=== PATIENT | male | born 1965 | race Caucasian/White ===

== ENCOUNTER 2016-05-26 05:36 | Outpatient (CLI) | payer BC ==
[~2016-05-26] VITALS: Ht 177.8 cm; Wt 129.5 kg
[2016-05-26] MEDS ORDERED: MESA800T PO (12:05)
[2016-05-26] MEDS ORDERED: ATOR10TA66 PO (12:05)
[2016-05-26] MEDS ORDERED: HYDR25TA4 PO (12:05)
[2016-05-26] MEDS ORDERED: DILT120C10 PO (12:05)
[2016-05-26 12:11] VITALS: BP 145/89
== END 2016-05-26 12:51 | disposition home or self-care (01) ==
LOC: PREOP 05:36
PROVIDERS: ATTEND Surgery
DX: Z01.818 Encounter for other preprocedural examination (principal); D17.9 Benign lipomatous neoplasm, unspecified
CPT/HCPCS: 87081

== ENCOUNTER 2016-06-02 06:00 | Day surgery (SDC) | payer BC ==
[~2016-06-02] VITALS: Ht 177.8 cm; Wt 129.5 kg
[~2016-06-02 06:00] MED LIST: ATOR10TA66 PO; DILT120C10 PO; HYDR25TA4 PO; MESA800T PO
[2016-06-02] MEDS ORDERED: ceFAZolin 2 GM/50 ML NS 50 ML IV ONE (06:25)
[2016-06-02] MEDS ORDERED: LACTATED RINGERS 1,000 ML IV PRN (06:56)
[2016-06-02] MEDS ORDERED: ceFAZolin 2 GM/NS 50 ML IV ONE (07:00)
[2016-06-02 07:12] VITALS: BP 158/101
[2016-06-02] MEDS ORDERED: ONDANSETRON 4 MG/2 ML (SDV) Z0FRAN ONE (07:16)
[2016-06-02] MEDS ORDERED: ROCURONIUM 50 MG/5 ML (ZEMURON) VIAL IV ONE (07:16)
[2016-06-02] MEDS ORDERED: proPOfol 200 MG/20 ML (DIPRIVAN) VIAL IV ONE (07:16)
[2016-06-02] MEDS ORDERED: LIDOCAINE PF 2% 10 ML (XYLOCAINE) AMP ONE (07:16)
[2016-06-02] MEDS ORDERED: fentaNYL INJECTION 100 MCG/2 ML AMP ONE (07:16)
[2016-06-02] MEDS ORDERED: SEVOFLURANE (ULTANE) 15 ML INHAL SOLN ONE (07:16)
[2016-06-02] MEDS ORDERED: LACTATED RINGERS 1,000 ML IV ONE (07:16)
[2016-06-02] MEDS ORDERED: MIDAZOLAM 2 MG/2 ML (VERSED) VIAL ONE (07:16)
[2016-06-02] MEDS ORDERED: BUPIVACAINE 0.5% 30 ML (SENSORCAINE) VIAL ONE (07:21)
[2016-06-02] MEDS ORDERED: LIDOCAINE 1% INJ 20 ML (XYLOCAINE) VIAL ONE (07:21)
[2016-06-02] MEDS ORDERED: SUCCINYLCHOLINE INJ 100 MG/5 ML SYR ONE (07:22)
--- NOTE | 2016-06-02 07:33 | Progress Note-Pre Operative ---
Pre-Operative Progress Note H&P Reviewed The H&P was reviewed, patient examined and no changes noted. Date H&P Reviewed: Jun 02, 2016 Time H&P Reviewed: 07:33 Pre-Operative Diagnosis: lipoma right shoulder, skin tags b/l YRN Queen DO Jun 02, 2016 7:33 am
--- NOTE | 2016-06-02 07:57 | Discharge Inst-Simple/Standard ---
Discharge Inst-Standard Discharge Medications New, Converted or Re-Newed RX: RX on Chart Patient Instructions/Follow Up Plan of Care/Instructions/FU: Follow up in clinic in 12 days Apply triple antibiotic over incisions under arm for 3 days Take medication as directed. Activity as Tolerated: No Discharge Diet: No Restrictions Other Inst to Patient Follow up Appt: Make appointment for 12 days. Instructions: No lifting greater than 10 pounds. No strenuous activity. May shower in 24 hours, no tub bath or soaking. Use incentive spirometer at home as directed. No Smoking Skin/Wound Care: May remove bandages. You need to leave the white strips over incision on they will fall off on their own. Symptoms to Report: Appetite Changes, Extremity Discoloration, Numbness/Tingling, Swelling Increased , Bleeding Excessive, Eyesight Changes, Pain Increased, Urine Color Change, Constipation(Persistent), Fever over 101 degree F, Pain/Pressure in chest, Urinating Difficulty, Cough Up/Vomit Blood, Heart Beat Irreg/Pounding, Pain/ Pressure in jaw, Vaginal Bleeding Increase, Cramps in feet or legs, Lightheadedness, Pain/Pressure in shoulder, Diarrhea(Persistent), Memory Changes Suddenly, Questions/Concerns, Weight gain consecutive days, Dizziness/ Fainting, Nausea/Vomiting, Shortness of Breath, Weight gain over 2 pounds If questions or concerns contact your physician Or seek help at emergency department. TARA DELANEY APRN Jun 02, 2016 07:57
[2016-06-02] MEDS ORDERED: DOCU-143 PO (07:58)
[2016-06-02] MEDS ORDERED: HYDR-3812 PO (07:58)
[2016-06-02] MEDS ORDERED: NEO/POLY/BAC (NEOSPORIN) OINT 15 GM TUBE ONE (08:35)
[2016-06-02 09:40] VITALS: BP 138/81
[2016-06-02 10:10] VITALS: BP 155/96
[2016-06-02 10:40] VITALS: BP 155/96
[2016-06-02 11:00] VITALS: BP 155/96
[2016-06-02] MEDS ORDERED: BUPIVACAINE 0.5% 30 ML (SENSORCAINE) VIAL INJ ONE (13:15)
[2016-06-02] MEDS ORDERED: LIDOCAINE 1% INJ 20 ML (XYLOCAINE) VIAL INJ ONE (14:00)
[2016-06-02] MEDS ORDERED: NEO/POLY/BAC (NEOSPORIN) OINT 15 GM TUBE TOP SCH (21:00)
--- NOTE | 2016-06-03 08:24 | Progress Note-Post Operative ---
Post-Operative Progess Note Surgeon (s)/Workday Financials Consultant (s) Surgeon YRN SCHILLING DO Workday Financials Consultant: Michael Red Pre-Operative Diagnosis lipoma right shoulder, skin tags b/l armpits Post-Operative Diagnosis same Post-Op Procedure Note Date of Procedure: Jun 03, 2016 Name of Procedure Performed: excision lipoma, excision and fulgaration skin tags right axilla 14 left axilla 15 Description of the Procedure: see note Findings of the Procedure see note Anesthesia Type general Estimated blood loss (mL): minimal Specimen(s) collected/removed lipoma YRN SCHILLING DO Jun 03, 2016 08:23
--- NOTE | 2016-06-03 09:40 | OPERATIVE REPORT ---
DATE OF SERVICE: 06/02/2016 PREOPERATIVE DIAGNOSES: 1. Lipoma right shoulder. 2. Skin tags bilateral armpits. POSTOPERATIVE DIAGNOSES: 1. Lipoma right shoulder. 2. Skin tags bilateral armpits. PROCEDURE PERFORMED: 1. Excision lipoma 6 x 6 x 4 cm. 2. Excision and fulguration of skin tags, right axilla 14 and left axilla 15. SURGEON: Yrn Ruiz DO ANESTHESIA: General. ESTIMATED BLOOD LOSS: Minimal. COMPLICATIONS: None. INDICATION: The patient is a 50-year-old male with large lipoma he has had for several years. It has continued to increase in size and cause discomfort. He has also got multiple skin tags in bilateral armpits. He understands risks and benefits of the procedure and wishes to proceed. Consent was signed and on the chart. DESCRIPTION OF PROCEDURE: The patient was taken to the operating suite, was prepped and draped in a sterile fashion in left lateral prone position. Time-out was performed. Then 0.5% Marcaine with 1% lidocaine in 50/50 ratio was used to anesthetize the area. The 15 blade scalpel was used to make incision and taken to the subcutaneous tissues. The lipoma was encountered, blunt dissection was used to dissect around the lipoma and deliver it through the incision. The wound was then irrigated with copious amounts of irrigation. This was in the subcutaneous layer. Skin was then closed in a vertical mattress fashion using 2-0 nylon suture. The area was then washed and dried, sterile bandage was applied. The patient was then repositioned, reprepped and draped. Bilateral axilla had multiple skin tags. The right had 14 and the left had 15. These were grasped, elevated and 15 blade scalpel was used to excise the skin tag at the base and then cautery was used to fulgurate the base. This was performed on both sides in the same fashion. Triple antibiotic ointment was then placed over the incisions. The patient tolerated the procedure well without any complications. He was taken to the recovery room in stable condition. Job ID: [id number] DocumentID: [id number] Dictated Date: 06/03/2016 08:22:03 Junction Maker Date: 06/03/2016 09:39:46 Dictated By: YRN RUIZ DO
== END 2016-06-02 11:00 | disposition home or self-care (01) ==
LOC: SDC 06:00
PROVIDERS: ATTEND Surgery
DX: D17.21 Benign lipomatous neoplasm of skin and subcutaneous tissue of right arm (principal); L91.8 Other hypertrophic disorders of the skin
CPT/HCPCS: 88304; 88341; 88342

== ENCOUNTER 2019-10-13 18:22 | Emergency (ER) | payer BC ==
[~2019-10-13] VITALS: Ht 170.1 cm; Wt 127.0 kg
[~2019-10-13 18:22] MED LIST changes: +ACHD5005 PO; +DOCU-143 PO
[2019-10-13] MEDS ORDERED: fentaNYL INJECTION 100 MCG/2 ML AMP IVP ONE ×2 (19:00→20:15)
[2019-10-13 19:10] LABS: BASOPHILS % (AUTO) 0 % (0-10); EOSINOPHILS # (AUTO) 0.1 10^3/uL (0.0-0.3); EOSINOPHILS % (AUTO) 1 % (0-10); HEMATOCRIT 42 % (40-54); HEMOGLOBIN 14.5 G/DL (13.3-17.7); LYMPHOCYTES # (AUTO) 2.4 X 10^3 (1.0-4.0); LYMPHOCYTES % (AUTO) 22 % (12-44); MEAN CORPUSCULAR HEMOGLOBIN 29 PG (25-34); MEAN CORPUSCULAR HGB CONC 35 G/DL (32-36); MEAN CORPUSCULAR VOLUME 85 FL (80-99); MEAN PLATELET VOLUME 9.6 FL (7.4-10.4); MONOCYTES # (AUTO) 1.3 X 10^3 (0.0-1.0); MONOCYTES % (AUTO) 12 % (0-12); NEUTROPHILS # (AUTO) 6.8 X 10^3 (1.8-7.8); NEUTROPHILS % (AUTO) 64 % (42-75); PLATELET COUNT 309 10^3/uL (130-400); RED CELL DISTRIBUTION WIDTH 13.1 % (10.0-14.5); WHITE BLOOD COUNT 10.7 10^3/uL (4.3-11.0)
--- NOTE | 2019-10-13 19:11 | ED Abdominal Pain ---
General Chief Complaint: Abdominal/GI Problems Stated Complaint: ABD PAIN Nursing Triage Note: PT AMBULATE TO ROOM 03 WITH C/O ABD PAIN. 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 Sepsis Screen: No Definite Risk Source of Information: Patient Exam Limitations: No Limitations History of Present Illness Date Seen by Provider: Oct 13, 2019 Time Seen by Provider: 18:53 Initial Comments This 53-year-old man presents to the emergency room with complaints of right upper quadrant pain that started around 14:30 today. He ate shrimp and pasta at 14:00 and then helped lift a large piece of concrete in the yard. Pain started shortly after. He has tried Pepto-Bismol, antiacids, and ibuprofen without any benefit. He rates his pain as a strong 7/10. He denies any associated symptoms such as nausea, vomiting, diarrhea, constipation, hematuria, or fever. He has history of ulcerative colitis for which he takes mesalamine. He has routine colonoscopies performed. His primary care providers Dr. Wagner. Dr. Mead is his acute care assistant who has performed his colonoscopies. Allergies and Home Medications Allergies Coded Allergies: No Known Drug Allergies (Unverified , 05/26/16) Home Medications Atorvastatin Calcium 10 Mg Tablet, 10 MG PO DAILY, (Reported) Diltiazem HCl 120 Mg Cap.er.12h, 120 MG PO BID, (Reported) Docusate Sodium 100 Mg Capsule, 100 MG PO BID Prescribed by: TARA COLEMAN on 06/02/16 0758 Hydrochlorothiazide 25 Mg Tablet, 25 MG PO DAILY, (Reported) Hydrocodone Bit/Acetaminophen 1 Each Tablet, 1 EA PO Q4-6HR PRN for pain Prescribed by: TARA COLEMAN on 06/02/16 0758 Hydrocodone/Acetaminophen 1 Each Tablet, 1 EACH PO Q4H PRN for PAIN-MODERATE (5- 7) Prescribed by: AMBREEN SMITH on 10/13/192140 Mesalamine 800 Mg Tablet., 1,600 MG PO TID, (Reported) Ondansetron 4 Mg Tab.rapdis, 4 MG SL Q4H PRN for NAUSEA/VOMITING Prescribed by: AMBREEN SMITH on 10/13/192139 Patient Home Medication List Home Medication List Reviewed: Yes Review of Systems Review of Systems Constitutional: no symptoms reported EENTM: No Symptoms Reported Respiratory: No Symptoms Reported Cardiovascular: No Symptoms Reported Gastrointestinal: See HPI Genitourinary: No Symptoms Reported Musculoskeletal: no symptoms reported Skin: no symptoms reported Psychiatric/Neurological: No Symptoms Reported Endocrine: No Symptoms Reported Hematologic/Lymphatic: No Symptoms Reported Past Nertjjj-Ooqeib-Vqnimn Hx Past Med/Social Hx: Reviewed Nursing Past Med/Soc Hx Patient Social History Alcohol Use: Occasionally Uses Recreational Drug Use: No Smoking Status: Never a Smoker 2nd Hand Smoke Exposure: No Recent Foreign Travel: No Contact w/Someone Who Travel: No Recent Infectious Disease Expo: No Recent Hopitalizations: No Physical Abuse: No Sexual Abuse: No Mistreated: No Fear: No Immunizations Up To Date Date of Influenza Vaccine: Nov 23, 2015 Seasonal Allergies Seasonal Allergies: Yes Past Medical History Surgeries: Yes (COLONOSCOPY, L KNEE SCOPE, LEFT CHEST TORN MUSCLE, ) Respiratory: No Cardiac: Yes High Cholesterol, Hypertension Neurological: No Reproductive Disorders: No Sexually Transmitted Disease: No HIV/AIDS: No Gastrointestinal: Yes (HX COLITIS) Colitis (ulcerative colitis) Musculoskeletal: Yes Gout Endocrine: No Loss of Vision: Denies Hearing Impairment: Denies Cancer: No Psychosocial: No Integumentary: No Blood Disorders: No Adverse Reaction/Blood Tranf: No (N/A) Physical Exam Vital Signs Vital Signs - First Documented 10/13/19 10/13/19 18:47 22:07 Temp 36.7 Pulse 63 Resp 18 B/P (MAP) 171/95 (120) Pulse Ox 99 O2 Delivery Room Air Capillary Refill : Less Than 3 Seconds Height/Weight/BMI Height: 5'10.00" Weight: 285lbs. 7.0oz. 129.341607pd; 43.00 BMI Method: General Appearance: WD/WN, no apparent distress, obese HEENT: PERRL/EOMI, normal ENT inspection Neck: normal inspection Respiratory: lungs clear, normal breath sounds, no respiratory distress, no accessory muscle use Cardiovascular: regular rate, rhythm, no edema, no murmur Gastrointestinal: normal bowel sounds, soft, tenderness (right upper quadrant and epigastrium) Extremities: normal inspection, no pedal edema Neurologic/Psychiatric: slitter cut off operator II-XII nml as tested, no motor/sensory deficits, alert, normal mood/affect, oriented x 3 Skin: normal color, warm/dry Progress/Results/Core Measures Results/Orders Lab Results Laboratory Tests Test 10/13/19 19:04 10/13/19 19:07 Range/Units White Blood Count 10.7 4.3-11.0 10^3/uL Red Blood Count 4.93 4.35-5.85 10^6/uL Hemoglobin 14.5 13.3-17.7 G/DL Hematocrit 42 40-54 % Mean Corpuscular Volume 85 80-99 FL Mean Corpuscular Hemoglobin 29 25-34 PG Mean Corpuscular Hemoglobin Concent 35 32-36 G/DL Red Cell Distribution Width 13.1 10.0-14.5 % Platelet Count 309 130-400 10^3/uL Mean Platelet Volume 9.6 7.4-10.4 FL Neutrophils (%) (Auto) 64 42-75 % Lymphocytes (%) (Auto) 22 12-44 % Monocytes (%) (Auto) 12 0-12 % Eosinophils (%) (Auto) 1 0-10 % Basophils (%) (Auto) 0 0-10 % Neutrophils # (Auto) 6.8 1.8-7.8 X 10^3 Lymphocytes # (Auto) 2.4 1.0-4.0 X 10^3 Monocytes # (Auto) 1.3 H 0.0-1.0 X 10^3 Eosinophils # (Auto) 0.1 0.0-0.3 10^3/uL Basophils # (Auto) 0.0 0.0-0.1 10^3/uL Erythrocyte Sedimentation Rate 8 0-30 MM/HR Sodium Level 139 135-145 MMOL/L Potassium Level 3.0 L 3.6-5.0 MMOL/L Chloride Level 102 98-107 MMOL/L Carbon Dioxide Level 24 21-32 MMOL/L Anion Gap 13 5-14 MMOL/L Blood Urea Nitrogen 20 H 7-18 MG/DL Creatinine 1.20 0.60-1.30 MG/DL Estimat Glomerular Filtration Rate > 60 BUN/Creatinine Ratio 17 Glucose Level 138 H 70-105 MG/DL Calcium Level 10.6 H 8.5-10.1 MG/DL Corrected Calcium 10.3 H 8.5-10.1 MG/DL Total Bilirubin 0.5 0.1-1.0 MG/DL Aspartate Amino Transf (AST/SGOT) 37 H 5-34 U/L Alanine Aminotransferase (ALT/SGPT) 51 0-55 U/L Alkaline Phosphatase 65 40-136 U/L C-Reactive Protein High Sensitivity 0.32 0.00-0.50 MG/DL Total Protein 7.6 6.4-8.2 GM/DL Albumin 4.4 3.2-4.5 GM/DL Lipase 14 8-78 U/L Urine Color YELLOW Urine Clarity CLEAR Urine pH 7.0 5-9 Urine Specific [place] 1.015 L 1.016-1.022 Urine Protein NEGATIVE NEGATIVE Urine Glucose (UA) NEGATIVE NEGATIVE Urine Ketones NEGATIVE NEGATIVE Urine Nitrite NEGATIVE NEGATIVE Urine Bilirubin NEGATIVE NEGATIVE Urine Urobilinogen 0.2 < = 1.0 MG/DL Urine Leukocyte Esterase NEGATIVE NEGATIVE Urine RBC (Auto) NEGATIVE NEGATIVE Urine RBC RARE /HPF Urine WBC NONE /HPF Urine Crystals NONE /LPF Urine Bacteria NEGATIVE /HPF Urine Casts NONE /LPF Urine Mucus NEGATIVE /LPF Urine Culture Indicated NO My Orders Orders - AMBREEN GRAY MD Ed Iv/Invasive Line Start (10/13/19 18:26) Cbc With Automated Diff (10/13/19 18:26) Comprehensive Metabolic Panel (10/13/19 18:26) Hs C Reactive Protein (10/13/19 18:26) Lipase (10/13/19 18:26) Ua Culture If Indicated (10/13/19 18:26) Erythrocyte Sedimentation Rate (10/13/19 19:00) Fentanyl Injection (Sublimaze Injection (10/13/19 19:00) Ct Abdomen/Pelvis W (10/13/19 20:06) Fentanyl Injection (Sublimaze Injection (10/13/19 20:15) Iohexol Injection (Omnipaque 350 Mg/Ml 1 (10/13/19 20:30) Received Contrast (Hold Metformin- Contr (10/13/19 20:30) Sodium Chloride Flush (Catheter Flush Sy (10/13/19 20:30) Ns (Ivpb) (Sodium Chloride 0.9% Ivpb Bag (10/13/19 20:30) Ondansetron Injection (Zofran Injectio (10/13/19 22:00) Potassium Chloride (Tablet) (Klor Con Ta (10/13/19 22:00) Medications Given in ED Current Medications Medications Dose Ordered Sig/Vidal Route Start Time Stop Time Status Last Admin Dose Admin Fentanyl Citrate 50 mcg ONCE ONCE IVP 10/13/19 19:00 10/13/19 19:01 DC 10/13/19 19:14 50 MCG Fentanyl Citrate 75 mcg ONCE ONCE IVP 10/13/19 20:15 10/13/19 20:16 DC 10/13/19 20:15 75 MCG Iohexol 100 ml ONCE ONCE IV 10/13/19 20:30 10/13/19 20:31 DC 10/13/19 20:43 100 ML Ondansetron HCl 4 mg ONCE ONCE IVP 10/13/19 22:00 10/13/19 22:01 DC 10/13/19 21:58 4 MG Potassium Chloride 40 meq ONCE ONCE PO 10/13/19 22:00 10/13/19 22:01 DC 10/13/19 21:58 40 MEQ Sodium Chloride 10 ml NEEDED PRN IV 10/13/19 20:30 10/13/19 22:07 DC 10/13/19 20:44 10 ML Sodium Chloride 100 ml ONCE ONCE IV 10/13/19 20:30 10/13/19 20:31 DC 10/13/19 20:44 80 ML Vital Signs/I&O 10/13/19 10/13/19 18:47 22:07 Temp 36.7 Pulse 63 69 Resp 18 17 B/P (MAP) 171/95 (120) 133/73 Pulse Ox 99 O2 Delivery Room Air Room Air Blood Pressure Mean: 120 Progress Progress Note #1: Time: 19:10 Progress Note Patient seen and examined. Labs pending. Fentanyl ordered for treatment of pain. Progress Note #2: Progress Note patient was redosed with fentanyl for further pain control. Options were discussed after review of labs. Patient elected to proceed with CT imaging. CT revealed gallbladder sludge. No no bowel inflammatory changes were noted. I discussed the case with Dr. Peace. He asked me to give the patient a choice between admission for cholecystectomy versus outpatient follow-up. Patient elects outpatient follow-up. See discharge instructions. Potassium was replaced orally before discharge. Diagnostic Imaging Diagonstic Imaging: CT Plain Films/CT/US/NM/MRI: abdomen, pelvis Comments CT abdomen and pelvis viewed by me and report reviewed. See report below: NAME: [facility] REC#: [id number] PT STATUS: REG ER : 1965 PHYSICIAN: AMBREEN GRAY MD ADMIT DATE: 10/13/19/ER Draft Date of Exam:10/13/19 CT ABDOMEN/PELVIS W PROCEDURE: CT abdomen and pelvis with contrast. TECHNIQUE: Multiple contiguous axial images were obtained through the abdomen and pelvis after administration of intravenous contrast. Auto Exposure Controls were utilized during the CT exam to meet ALARA standards for radiation dose reduction. INDICATION: Right upper quadrant pain, history of ulcerative colitis. COMPARISON: None. FINDINGS: There are a few scattered colonic and sigmoidal diverticuli without evidence for acute diverticulitis. The colon appears otherwise normal. No findings of focal or generalized colitis. No pericolonic edema. The unobstructed small bowel appears normal. There is mild fatty infiltration of the liver with focal sparing adjacent to the gallbladder fundus. There is a small amount of intermediate density in the material within the dependent gallbladder which may be tiny noncalcified stones or sludge debris. The gallbladder wall is non-thickened and there is no para cholecystic edema. The bile ducts are nondilated. The spleen, adrenals and pancreas are unremarkable. The unobstructed kidneys are nonfocal and nonacute. There is no ascites, abscess hematoma, fluid collection, free air or pneumatosis. Prostate, seminal vesicles and urinary bladder unremarkable. IMPRESSION: 1. Mild noninflamed diverticulosis, colon otherwise normal and nonfocal. 2. Questionable findings for small amount of intraluminal sludge or tiny stones in the gallbladder. Fatty liver with focal pericholecystic sparing. No acute inflammatory process appreciable at CT. Dictated on workstation # [id number] Dict: 10/13/192048 Trans: 10/13/192103 [facility] [id number] Interpreted by: CHERRY ERZA Departure Impression Primary Impression: Right upper quadrant pain Additional Impressions: Gallbladder sludge Hypokalemia Disposition: 01 HOME, SELF-CARE Condition: Improved Departure-Patient Inst. Decision time for Depature: 21:36 Referrals: STEFFEN PEACE MD, WILLIAM J DO (PCP/Family) Primary Care Physician Patient Instructions: Gallbladder Diet, Severe Abdominal Pain Add. Discharge Instructions: Adhere to a clear liquid diet for the remainder of the night. Tomorrow gradually advance your diet with small quantities of bland food as tolerated. It is important to eat a low fat, low oil diet to avoid irritating your gallbladder. Follow-up with Dr. Peace or the surgeon of your choice for further evaluation of your gallbladder. Dr. PEACE's information is listed below for your convenience. Dr. Peace can see you at 2 p.m. on October 14. Please call his office tomorrow morning if you desire to follow-up with him at that time. Pain and nausea medication has been prescribed should you need it for another flareup. It is also recommended that you take an antacid medication daily for the next c ouple of weeks. You may use an yebd-ndm-ebncqvt medication such as Pepcid (famotidine) 20 mg twice daily or omeprazole 20 mg daily. All discharge instructions reviewed with patient and/or family. Voiced understanding. Scripts Ondansetron (Ondansetron Odt) 4 Mg Tab.rapdis 4 MG SL Q4H PRN for NAUSEA/VOMITING, #10 TAB Prov: AMBREEN GRAY MD 10/13/19 Hydrocodone/Acetaminophen (Hydrocodone-Acetamin 5-325 mg) 1 Each Tablet 1 EACH PO Q4H PRN for PAIN-MODERATE (5-7), #10 TAB Prov: AMBREEN GRAY MD 10/13/19 Copy Copies To 1: STEFFEN PEACE MD Copies To 2: ARBEN WAGNER JOSHUA T MD Oct 13, 2019 19:11
[2019-10-13 19:15] LABS: BILIRUBIN,URINE NEGATIVE (NEGATIVE); CLARITY,URINE CLEAR; COLOR,URINE YELLOW; GLUCOSE, URINE (UA) NEGATIVE (NEGATIVE); KETONES,URINE NEGATIVE (NEGATIVE); LEUKOCYTE ESTERASE ,URINE NEGATIVE (NEGATIVE); NITRITE,URINE NEGATIVE (NEGATIVE); PROTEIN,URINE NEGATIVE (NEGATIVE)
[2019-10-13 19:22] LABS: BACTERIA,URINE NEGATIVE /HPF; RBC,URINE RARE /HPF
[2019-10-13 19:31] LABS: ALANINE AMINOTRANSFERASE 51 U/L (0-55); ALBUMIN 4.4 GM/DL (3.2-4.5); ALKALINE PHOSPHATASE 65 U/L (40-136); BILIRUBIN,TOTAL 0.5 MG/DL (0.1-1.0); BUN/CREATININE RATIO 17; CALCIUM 10.6 MG/DL (8.5-10.1); CARBON DIOXIDE 24 MMOL/L (21-32); CHLORIDE 102 MMOL/L (98-107); GFR ESTIMATED > 60; GLUCOSE 138 MG/DL (70-105); LIPASE 14 U/L (8-78); SODIUM 139 MMOL/L (135-145); TOTAL PROTEIN 7.6 GM/DL (6.4-8.2)
[2019-10-13 19:33] LABS: ERYTHROCYTE SEDIMENTATION RATE 8 MM/HR (0-30)
[2019-10-13] MEDS ORDERED: HOLD METFORMIN - RECEIVED CONTRAST 20 ML VIAL IV SCH (20:30)
[2019-10-13] MEDS ORDERED: IOHEXOL 350 MG/ML 100 ML (OMNIPAQUE 350) VIAL IV ONE (20:30)
[2019-10-13] MEDS ORDERED: CATHETER FLUSH 10 ML SYR IV PRN (20:30)
[2019-10-13] MEDS ORDERED: NS 100 ML (IVPB) BAG IV ONE (20:30)
--- NOTE | 2019-10-13 21:05 | Diagnostic Imaging Report ---
PROCEDURE: CT abdomen and pelvis with contrast. TECHNIQUE: Multiple contiguous axial images were obtained through the abdomen and pelvis after administration of intravenous contrast. Auto Exposure Controls were utilized during the CT exam to meet ALARA standards for radiation dose reduction. INDICATION: Right upper quadrant pain, history of ulcerative colitis. COMPARISON: None. FINDINGS: There are a few scattered colonic and sigmoidal diverticuli without evidence for acute diverticulitis. The colon appears otherwise normal. No findings of focal or generalized colitis. No pericolonic edema. The unobstructed small bowel appears normal. There is mild fatty infiltration of the liver with focal sparing adjacent to the gallbladder fundus. There is a small amount of intermediate density in the material within the dependent gallbladder which may be tiny noncalcified stones or sludge debris. The gallbladder wall is non-thickened and there is no para cholecystic edema. The bile ducts are nondilated. The spleen, adrenals and pancreas are unremarkable. The unobstructed kidneys are nonfocal and nonacute. There is no ascites, abscess hematoma, fluid collection, free air or pneumatosis. Prostate, seminal vesicles and urinary bladder unremarkable. IMPRESSION: 1. Mild noninflamed diverticulosis, colon otherwise normal and nonfocal. 2. Questionable findings for small amount of intraluminal sludge or tiny stones in the gallbladder. Fatty liver with focal pericholecystic sparing. No acute inflammatory process appreciable at CT. Dictated by: Dictated on workstation # [id number]
[2019-10-13] MEDS ORDERED: ONDA4TAB11 SL (21:40)
[2019-10-13] MEDS ORDERED: HYDR-3812 PO (21:40)
[2019-10-13] MEDS ORDERED: KCL 10 MEQ TAB (MICRO K) PO ONE (22:00)
[2019-10-13] MEDS ORDERED: ONDANSETRON 4 MG/2 ML (SDV) Z0FRAN IVP ONE (22:00)
[2019-10-13 22:07] VITALS: BP 133/73
--- NOTE | 2019-10-13 22:32 | HISTORY AND PHYSICAL ---
DATE OF SERVICE: ATTENDING PRIMARY CARE PHYSICIAN: Dr. Juve Wagner. HISTORY OF PRESENT ILLNESS: The patient is a 53-year-old male, who presented to the Emergency Department with acute onset of pain in the right upper abdominal quadrant starting early this afternoon and the pain persisted. Pain is described as sharp in nature with no radiation. He also does report some mild nausea, no vomiting. He also does not report any fever nor chills. A CT scan was performed, which did show mild gallbladder wall thickening as well as gallstones. PAST MEDICAL HISTORY: Hypertension, hypercholesterolemia, ulcerative colitis. PAST SURGICAL HISTORY: Left knee arthroscopy. ALLERGIES: No known drug allergies. MEDICATIONS: Atorvastatin, diltiazem, hydrochlorothiazide, hydrocodone, mesalamine. SOCIAL HISTORY: Negative smoke, social alcohol. FAMILY HISTORY: Noncontributory. VITAL SIGNS: Temperature 36.7, blood pressure 171/95, pulse 63, respirations 18. REVIEW OF SYSTEMS: Well-nourished male in no acute distress. He is not experiencing any shortness of breath or difficulty breathing. No chest pain, palpitations, diaphoresis. Intermittent nausea, no vomiting with pain in the right upper abdominal quadrant. No diarrhea, constipation, no red blood per rectum, no dark tarry stools. No fever, chills, no recent inadvertent weight loss. All other review of systems negative. PHYSICAL EXAMINATION: CHEST: Clear. Good breath sounds bilaterally. HEART: Regular, no murmurs. EXTREMITIES: No lower extremity edema, negative Homans sign. HEENT: No scleral icterus. NECK: No cervical lymphadenopathy. ABDOMEN: Soft, nondistended. There is pain in the right upper abdominal quadrant with positive Miller sign. No palpable masses, no hernias. SKIN: Warm, dry. LABORATORY DATA: WBC 10.7, hemoglobin 14.5, hematocrit 47, platelets 309. BUN 20, creatinine 1.20. ASSESSMENT AND PLAN: A 53-year-old male with symptomatic acute on chronic calculous cholecystitis. The natural history of gallbladder disease was explained to the patient including the risks and benefits of surgery. He is in full understanding of this and would like to proceed with a laparoscopic cholecystectomy, which we will schedule. Job ID: [id number] DocumentID: [id number] Dictated Date: 10/13/2019 21:34:09 Aviation Survival Technician Date: 10/13/2019 22:31:46 Dictated By: STEFFEN CHASE MD
== END 2019-10-13 22:07 | disposition home or self-care (01) ==
LOC: EDUNIT# 18:22 → ER 18:23
DX: R10.11 Right upper quadrant pain (principal); K83.8 Other specified diseases of biliary tract; E87.6 Hypokalemia; E78.00 Pure hypercholesterolemia, unspecified; I10 Essential (primary) hypertension; E66.9 Obesity, unspecified; Z68.41 Body mass index [BMI] 40.0-44.9, adult
CPT/HCPCS: 36415; 74177; 80053; 81000; 83690; 85025; 85652; 86141

== ENCOUNTER 2019-10-15 11:08 | Outpatient (CLI) | payer BC ==
[~2019-10-15] VITALS: Ht 177.8 cm; Wt 127.3 kg
[~2019-10-15 11:08] MED LIST changes: +HYDR-3812 PO; +ONDA4TAB11 SL
[2019-10-15] MEDS ORDERED: METF-397 PO (11:54)
[2019-10-15] MEDS ORDERED: DILT300C52 PO (11:54)
[2019-10-15] MEDS ORDERED: HYDR50TA3 PO (11:54)
[2019-10-15] MEDS ORDERED: ATOR40TA70 PO (11:54)
== END 2019-10-15 11:57 | disposition home or self-care (01) ==
LOC: PREOP 11:08
PROVIDERS: ATTEND Surgery
DX: Z01.818 Encounter for other preprocedural examination (principal)

== ENCOUNTER 2019-10-16 09:21 | Day surgery (SDC) | payer BC ==
[2019-10-16] VITALS (11 sets, daily range): BP systolic 139–174; BP diastolic 65–89
[~2019-10-16] VITALS: Ht 177.8 cm; Wt 127.3 kg
[~2019-10-16 09:21] MED LIST changes: +ATOR40TA70 PO; +DILT300C52 PO; -HYDR-3812 PO; +HYDR50TA3 PO; +METF-397 PO
[2019-10-16] MEDS ORDERED: ceFAZolin 2 GM IV Premixed 50 ML IV ONE (09:30)
[2019-10-16] MEDS ORDERED: LACTATED RINGERS 1,000 ML IV PRN (09:30)
--- NOTE | 2019-10-16 09:47 | Progress Note-Pre Operative ---
Pre-Operative Progress Note H&P Reviewed The H&P was reviewed, patient examined and no changes noted. Date Seen by Provider: Oct 16, 2019 Time Seen by Provider: 09:45 Date H&P Reviewed: Oct 16, 2019 Time H&P Reviewed: 09:45 Pre-Operative Diagnosis: acute cholecystitis STEFFEN CHASE MD Oct 16, 2019 09:47
--- NOTE | 2019-10-16 09:50 | Discharge Inst-Surgical ---
D/C Lap Instructions-RENA Follow Up Appt in 2 weeks Activity as tolerated No driving for 24 hours No driving while on pain medications Incentive Spirometry use every 2 hours while awake Regular Diet Symptoms to Report: Fever over 101 degree F, Nausea/Vomiting Infection Signs and Symptoms to report: Increased redness, Foul odor of wound, Increased drainage Bathing instructions: May shower Operative Area Clean/Dry; Keep incision clean/dry If any problems/questions: Contact your physician or go to Emergency Room STEFFEN CHASE MD Oct 16, 2019 09:50
[2019-10-16] MEDS ORDERED: morphine INJ 10 MG/ML 1ML (SYR OR VIAL) IVP PRN ×2 (10:00)
[2019-10-16] MEDS ORDERED: ACETAMINOPHEN 325 MG TABLET PO PRN (10:00)
[2019-10-16] MEDS ORDERED: oxyCODONE/APAP 5/325MG (PERCOCET 5) TABLET PO PRN (10:00)
[2019-10-16] MEDS ORDERED: ONDANSETRON 4 MG/2 ML (SDV) Z0FRAN IVP PRN ×2 (10:00→12:30)
[2019-10-16] MEDS ORDERED: fentaNYL INJECTION 100 MCG/2 ML AMP IVP ONE ×2 (10:00→12:30)
[2019-10-16] MEDS ORDERED: MIDAZOLAM 2 MG/2 ML (VERSED) VIAL ONE (10:11)
[2019-10-16] MEDS ORDERED: ROCURONIUM 10 MG/ML 5 ML SYRINGE IV ONE (10:11)
[2019-10-16] MEDS ORDERED: proPOfol 200 MG/20 ML (DIPRIVAN) VIAL IV ONE (10:11)
[2019-10-16] MEDS ORDERED: ONDANSETRON 4 MG/2 ML (SDV) Z0FRAN ONE (10:11)
[2019-10-16] MEDS ORDERED: fentaNYL INJECTION 100 MCG/2 ML AMP ONE (10:11)
[2019-10-16] MEDS ORDERED: GLYCOPYRROLATE 0.2 MG/ML (ROBINUL) 2 ML VIAL ONE (10:11)
[2019-10-16] MEDS ORDERED: NEOSTIGMINE 3 MG/3 ML VIAL ONE (10:11)
[2019-10-16] MEDS ORDERED: LIDOCAINE PF 2% 5 ML (XYLOCAINE) VIAL ONE (10:11)
[2019-10-16] MEDS ORDERED: BUP/EPI 0.5% 1:200,000 (SENSORCAINE) 30 ML VIAL ONE (10:24)
--- NOTE | 2019-10-16 12:08 | Progress Note-Post Operative ---
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 Procedure & Operative Findings Date of Procedure 10/16/19 Procedure Performed/Findings laparoscopic cholecystectomy. Anesthesia Type get Estimated Blood Loss Estimated blood loss (mL): minimal Specimens/Packing Specimens Removed gallbladder STEFFEN CHASE MD Oct 16, 2019 12:08
[2019-10-16] MEDS ORDERED: SEVOFLURANE (ULTANE) 15 ML INHAL SOLN ONE (12:22)
[2019-10-16] MEDS ORDERED: morphine INJ 10 MG/ML 1ML (SYR OR VIAL) IVP ONE (12:30)
[2019-10-16] MEDS ORDERED: MEPERIDINE (DEMEROL) INJ 50 MG/ML IVP ONE (12:30)
--- NOTE | 2019-10-16 16:12 | OPERATIVE REPORT ---
DATE OF SERVICE: 10/16/2019 ATTENDING PRIMARY CARE PHYSICIAN: Juve Wagner MD. PREOPERATIVE DIAGNOSIS: Acute calculous cholecystitis. POSTOPERATIVE DIAGNOSIS: Acute calculous cholecystitis. PROCEDURE PERFORMED: Laparoscopic cholecystectomy. SURGEON: Steffen Chase MD. LOAD PLANNER: Ji Canela APRN. ANESTHESIA: General endotracheal. ESTIMATED BLOOD LOSS: 100 mL. FINDINGS: Inflamed gallbladder with early necrosis. DISPOSITION: The patient tolerated the procedure well. INDICATIONS FOR PROCEDURE: The patient is a 53-year-old male, who presented to the Emergency Department with right upper abdominal quadrant pain, which is sharp in nature and significant. He also did report nausea; however, no vomiting. A CT scan was performed, which did show gallbladder wall thickening as well as gallstones. DESCRIPTION OF PROCEDURE: The patient was brought to the operating room and laid supine on the table. After adequate IV pain and sedative medications and general endotracheal intubation, the abdomen was prepped and draped in a standard surgical fashion. A 0.5% Marcaine with epinephrine was then used to anesthetize the overlying skin in the left upper abdominal quadrant and a transverse skin incision was made using a 15 blade. The Veress needle was removed and a 5 mm XL trocar was placed followed by a 5 mm 45-degree angle laparoscope visualizing the peritoneal cavity. A four-quadrant abdominal exploration was performed. He did have a thick mesentery and omentum. There was an inflamed gallbladder with early necrosis. Under direct visualization, we then proceeded to place a supraumbilical 10 mm port after the skin and peritoneal lining were anesthetized using 0.5% Marcaine with epinephrine and a transverse skin incision was made using a 15 blade. In a similar manner, a right upper abdominal quadrant 5 mm port was placed. The gallbladder was first decompressed with an aspiration needle and a sterile tubing. The fundus was then retracted anteriorly and superiorly, and the patient was placed in a reverse Trendelenburg position as well as plane right side up and left side down. The hepatoduodenal ligament was then opened using a blunt dissection as well as electrocautery using a hook instrument and the cystic duct and artery were then dissected out using a [place] dissector identifying the triangle of Calot as well as the cystic duct and artery are only two structures going into the gallbladder as well as the cystic plate behind the proximal gallbladder. A timeout was then taken and the cystic duct and artery were then clipped proximally, distally and cut with EndoShears. The gallbladder was then dissected off the liver bed using electrocautery with visualization of good hemostasis as well as no leaking ducts of Luschka. The gallbladder was removed through the 10 mm port site using an EndoCatch bag. The 10 mm port site fascia and peritoneum were then closed under direct visualization using a Anderson-Jarrod device and 0 Vicryl suture. The abdomen was then desufflated and the remaining ports removed. All skin incisions were closed using 4-0 Monocryl running subcuticular sutures. Wounds were then cleaned and covered with Dermabond. The patient tolerated the procedure well. We will start IV normal pain medication as well as a clear liquid diet. Once he is tolerating clears, has good pain control with oral pain medications and ambulating well, we will discharge him home. We will also instruct him to do no heavy lifting or exertion for the next two weeks. Job ID: [id number] DocumentID: [id number] Dictated Date: 10/16/2019 12:00:10 Belt Lacer Date: 10/16/2019 13:53:53 Dictated By: STEFFEN CHASE MD
--- NOTE | 2019-10-24 07:03 | Anesthesia-General Post-Op ---
General Patient Condition Mental Status/LOC: Same as Preop Cardiovascular: Satisfactory Nausea/Vomiting: Absent Respiratory: Satisfactory Pain: Controlled Complications: Absent Post Op Complications Complications None Follow Up Care/Instructions Patient Instructions None needed. Anesthesia/Patient Condition Patient Condition Patient is doing well, no complaints, stable vital signs, no apparent adverse anesthesia problems. No complications reported per nursing. MARCO BELL CRNA Oct 24, 2019 07:03
== END 2019-10-16 14:30 | disposition home or self-care (01) ==
LOC: SDC 09:21
PROVIDERS: ATTEND Surgery
DX: K80.12 Calculus of gallbladder with acute and chronic cholecystitis without obstruction (principal); I10 Essential (primary) hypertension; G47.33 Obstructive sleep apnea (adult) (pediatric); E11.9 Type 2 diabetes mellitus without complications; E66.01 Morbid (severe) obesity due to excess calories; Z68.41 Body mass index [BMI] 40.0-44.9, adult; Z79.84 Long term (current) use of oral hypoglycemic drugs; Z79.899 Other long term (current) drug therapy
CPT/HCPCS: 82962; 87081; 88304